=== PATIENT | female | born 1960 | race Caucasian/White ===

== ENCOUNTER 2017-01-05 10:30 | Inpatient (IN) | payer OTHER ==
[~2017-01-05] VITALS: Ht 172.7 cm; Wt 116.1 kg
[~2017-01-05 10:30] MED LIST: AMLO10TA2 PO; BREO ELLIPTA 21 EACH IH; CHOL10003 PO; CRAN200C2 PO; ESTR1TAB15 PO; GLUC1TAB71 PO; GREE250C PO; LANS15CA78 PO; MEDR2.5T28 PO; MELO15TA23 PO; MONT10TA9 PO; MULT-246 PO; OLME1TAB25 PO; OMEG1CAP38 PO; PROAIR HFA8.5 GM INH; UBID100C26 PO; VENL150C PO
[2017-01-12] VITALS (7 sets, daily range): BP systolic 96–131; BP diastolic 65–86
[2017-01-12] MEDS ORDERED: BACITRACIN 50,000 UNIT in IV NORMAL SALINE 1000ML BAG 1,000 ML IRR ONE (06:00)
--- NOTE | 2017-01-12 06:58 | HP ---
ADMIT DATE: 01/12/2017 PREOPERATIVE HISTORY AND PHYSICAL Charlie Hernandez dictating for Dr. Valeriano Davis. DATE OF SURGERY: 01/12/2017 HISTORY OF PRESENT ILLNESS: The patient is a pleasant 56-year-old who is having difficulty with severe lower back pain along with pain, which radiates into her right leg. She also notices numbness in the right leg. The low back pain is constant and increase with walking or standing. Her right leg pain and numbness occur with walking and standing. She did undergo surgery in 2006 on the lumbar spine. In 2011, I operated on her for a left lumbar radiculopathy. This is related to a large synovial cyst. She did well from that operation; however, in the last year, has had increasing back pain along with problems in her right leg. She notes a numbness, which tends to radiate down her lateral thigh and anterior lateral leg to the dorsum of her right foot. She does not notice weakness in her legs. She rates her pain as 8/10. She sits and rests in a recliner frequently. 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 She takes [place], Tylenol and ibuprofen. She has been through physical therapy. She has not had epidural steroid injections since her 2012 surgery. There is no significant problem on the left side. PAST MEDICAL HISTORY: Arthritis, asthma and headaches. SURGICAL HISTORY: Laminectomy in 2006, bronchitis in 1997, cyst removed from ankle in 2011, lumbar decompression and synovial cyst removed in 2011. FAMILY HISTORY: Diabetes, heart problems and hypertension. SOCIAL HISTORY: Employed as an area admin. . Denies substance abuse. Nonsmoker. Drinks alcohol 1-2 times per month. Drinks soda daily. ALLERGIES: JOSE L INHIBITORS. CURRENT MEDICATIONS: ProAir HFA, venlafaxine, montelukast sodium, Breo Ellipta, olmesartan medoxomil, amlodipine besylate, meloxicam, estradiol, medroxyprogesterone, ____, cyclobenzaprine, [place], Nexium, Tylenol and ibuprofen. REVIEW OF SYSTEMS: A 12-point review of systems was obtained and is noncontributory, except for that mentioned above. NEUROSURGERY EXAMINATION: GENERAL APPEARANCE: Alert and pleasant, in no acute distress. HEAD: Normocephalic and atraumatic. SKIN: Warm and dry. MUSCULOSKELETAL: Lumbar paraspinal muscle bulk is normal. Restricted range of motion of the lumbar spine. [id number]-[id number] tenderness of lower lumbar spine with palpation. Normal range of motion of lower extremities bilaterally. EXTREMITIES: No clubbing, cyanosis or edema. NEUROLOGIC: Alert and oriented x 3. Normal recent and remote memory. Strength 5/5 in bilateral lower extremities. Sensory was intact to light touch in bilateral lower extremities, except for decrease in the right anterior lateral leg to light touch. Reflexes were trace and symmetric in the lower extremities bilaterally. Positive straight leg raising on the right. Negative straight leg raising on the left. Markedly antalgic gait favoring her right leg. IMAGING: Reviewed. I reviewed the lumbar MRI scan. There are postoperative changes at L5-S1 with left hemilaminectomy. There is a severe lateral recess stenosis and foraminal narrowing on the right at that level. She has spondylolisthesis at L5-S1 of 8 mm on the MRI scan. This increases to a grade 2 spondylolisthesis as seen on her plain lumbar spine films. There is a partial lumbarization of S1, and this level is labeled L4-L5 on the lumbar spine film report. I am labeling this level L5-S1 as it is labeled on the report. ASSESSMENT: 1. Spondylolisthesis, lumbosacral region. 2. Radiculopathy, lumbosacral region. PLAN: The patient has a spondylolisthesis with motion at L5-S1 along with neural foraminal narrowing and lateral recess narrowing on the right. There are postoperative changes on the left at that level. She has severe right lumbar radiculopathy, which follows the L5 nerve root pattern, suggesting compression of the L5 root and the narrowed neural foramen on the right. I have recommended lumbar microdecompression on the right side at the level of the lateral recess as well as the neural foraminal combined with posterior instrumentation at L5-S1 with an anterior diskectomy and fusion at this level. I discussed this with her in detail. She would like to go ahead. We will make the arrangements. VALERIANO DAVIS MD DR: JORGE/mariaelena JOB#: [id number] / [id number]
[2017-01-12] MEDS ORDERED: IV RINGERS,LACTATED 1000ML 1,000 ML IV SCH (07:00)
[2017-01-12] MEDS ORDERED: fentaNYL PF VIAL 100 MCG/2 ML VIAL IV PRN ×3 (07:00→18:45)
[2017-01-12] MEDS ORDERED: MORPHINE SULFATE 2 MG/ML DISP.SYRIN. IV PRN (07:00)
[2017-01-12] MEDS ORDERED: LIDOCAINE 1% PF 2 ML VIAL. ID PRN (07:00)
[2017-01-12] MEDS ORDERED: ONDANSETRON PF 4 MG/2 ML VIAL. IV PRN ×2 (07:00→18:45)
[2017-01-12] MEDS ORDERED: PROCHLORPERAZINE 10 MG/2 ML VIAL. IV PRN (07:00)
[2017-01-12] MEDS ORDERED: GELATIN SPONGE SIZE 100. ONE (07:26)
[2017-01-12] MEDS ORDERED: KETOROLAC 60 MG/2 ML INJ FOR OR. ONE (07:26)
[2017-01-12] MEDS ORDERED: BUPIVACAINE MPF 0.5% 30 ML VIAL. ONE (07:27)
[2017-01-12] MEDS ORDERED: THROMBIN TOPICAL 20,000 UNIT SPRAY.SYRN KIT TP ONE (07:27)
[2017-01-12] MEDS ORDERED: BUPIVAC MPF-EPI 0.5%-1:200000 30 ML VIAL. ONE (07:28)
[2017-01-12] MEDS ORDERED: SCOPOLAMINE 1.5MG PATCH. TD ONE (08:30)
[2017-01-12] MEDS ORDERED: MIDAZOLAM HCL/PF 2 MG/2 ML VIAL. ONE ×2 (10:10→15:55)
[2017-01-12] MEDS ORDERED: REMIFENTANIL 2 MG VIAL. IV ONE ×2 (10:10→16:16)
[2017-01-12] MEDS ORDERED: GLYCOPYRROLATE 1 MG/5 ML VIAL. ONE (10:10)
[2017-01-12] MEDS ORDERED: ROCURONIUM 50 MG/5 ML VIAL. ONE (10:10)
[2017-01-12] MEDS ORDERED: DESFLURANE > 120 MINUTES IH ONE (10:11)
[2017-01-12] MEDS ORDERED: ONDANSETRON PF 4 MG/2 ML VIAL. ONE (10:11)
[2017-01-12] MEDS ORDERED: PROPOFOL 50 ML IV ONE ×5 (10:11→18:08)
[2017-01-12] MEDS ORDERED: LIDOCAINE 2% PF Vial for OR 5 ML VIAL. ONE (10:11)
[2017-01-12] MEDS ORDERED: PROPOFOL 20 ML IV ONE ×2 (10:11→15:41)
[2017-01-12] MEDS ORDERED: DEXAMETHASONE SOD PHOS 20 MG/5 ML VIAL. ONE (10:11)
[2017-01-12] MEDS ORDERED: PHENYLEPHRINE 10 MG/ML VIAL. ONE (10:14)
--- NOTE | 2017-01-12 11:25 | RAD ---
CT lumbar spine without contrast 01/12/2017 Clinical indication: Lumbar radiculopathy. Comparison: None. Technique: Multiple CT images of the lumbar spine were obtained without contrast. PQRS Compliance Statement: One or more of the following individualized dose reduction techniques were utilized for this examination: 1. Automated exposure control 2. Adjustment of the mA and/or kV according to patient size 3. Use of iterative reconstruction technique Finds: Lumbar spine: There are 5 nonrib-bearing lumbar type vertebral bodies with the first considered L1 for the purposes of this dictation. There is 5 mm grade 1 anterolisthesis L5 on S1. Vertebral body heights are maintained. There is moderate disc degeneration at T12-L1 and L5-S1 with endplate sclerosis and disc space narrowing, marginal osteophyte formation and vacuum disc phenomenon. There is mild disc space narrowing at L1-L2. The paraspinal soft tissues are unremarkable. Segmental analysis: At T12-L1, disc degeneration with concentric disc bulging and posterior disc ossify complex results in moderate bilateral neural foraminal narrowing but no significant spinal canal narrowing. At L1-L2, concentric disc bulging resulting in moderate bilateral neural foraminal narrowing with no significant spinal canal narrowing. At L2-L3, shallow concentric disc bulging with no significant spinal canal or neural foraminal narrowing. At L3-L4, no significant spinal canal or neuroforaminal narrowing. At L4-L5, concentric disc bulging and moderate bilateral facet hypertrophy and ligamentum flavum thickening results in moderate spinal canal and mild bilateral neuroforaminal narrowing. At L5-S1, grade 1 anterolisthesis with unroofing of the dorsal disc and bilateral facet hypertrophy results in mild spinal canal and severe right and moderate to severe left neural foraminal stenosis. Impression: 1. Grade 1 anterolisthesis of L5 on S1. 2. Multilevel spinal canal narrowing, greatest to a moderate degree, at L4-L5. 3. Degenerative multilevel neural foraminal narrowing, greatest to severe degree, on the right at L5-S1. 4. Additional areas of moderate neural foraminal narrowing, as detailed above.
[2017-01-12] MEDS ORDERED: 0.9 % SODIUM CHLORIDE 50 ML VIAL. IJ ONE (16:16)
[2017-01-12] MEDS ORDERED: fentaNYL PF VIAL 100 MCG/2 ML VIAL ONE ×3 (18:17→19:15)
[2017-01-12] MEDS ORDERED: NON FORMULARY ITEM (Albuterol Sulfate (Proair Hfa Inhaler) 2 PUFF) INH PRN (18:45)
[2017-01-12] MEDS ORDERED: MAGNESIUM HYDROXIDE 2,400 MG/30 ML ORAL.SUSP. PO PRN (18:45)
[2017-01-12] MEDS ORDERED: MAG HYDROX/ALUMINUM HYD/SIMETH 30 ML ORAL.SUSP PO PRN (18:45)
[2017-01-12] MEDS ORDERED: oxyCODONE/APAP 5/325 1 TAB TABLET PO PRN (18:45)
[2017-01-12] MEDS ORDERED: diphenhydrAMINE HCL 25 MG CAPSULE PO PRN (18:45)
[2017-01-12] MEDS ORDERED: ACETAMINOPHEN 325 MG TABLET. PO PRN (18:45)
[2017-01-12] MEDS ORDERED: diphenhydrAMINE 50 MG/ML VIAL IV PRN (18:45)
[2017-01-12] MEDS ORDERED: 0.9 % SODIUM CHLORIDE 10 ML DISP.SYRIN. IV PRN (18:45)
[2017-01-12] MEDS ORDERED: CALCIUM CARBONATE 500 MG TAB.CHEW PO PRN (18:45)
[2017-01-12] MEDS: fentaNYL PF VIAL 100 MCG/2 ML VIAL IV PRN ×4 (19:03→19:31)
[2017-01-12] MEDS ORDERED: HYDROmorphone 2 MG/ML VIAL ONE (19:32)
[2017-01-12] MEDS: HYDROmorphone 2 MG/ML VIAL IV PRN ×4 (19:35→20:06)
[2017-01-12] MEDS ORDERED: KETOROLAC 30 MG/ML INJ. ONE (19:47)
[2017-01-12] MEDS: POTASSIUM CL 20MEQ D5-0.45NACL 1,000 ML IV SCH (20:00)
[2017-01-12] MEDS: oxyCODONE/APAP 5/325 1 TAB TABLET PO PRN (20:13)
[2017-01-12] MEDS ORDERED: ALBUTEROL SULFATE 2.5 MG/3 ML NEBU. NEB PRN (20:45)
[2017-01-12] MEDS ORDERED: ceFAZolin SODIUM 1 GM in IV DEXTROSE 5% 50 ML IV SCH (22:00)
[2017-01-12] MEDS: DOCUSATE SODIUM 100 MG CAPSULE. PO SCH (22:32)
[2017-01-12] MEDS: METHOCARBAMOL 750 MG TABLET PO SCH (22:32)
[2017-01-12] MEDS: ceFAZolin SODIUM IV Push 1 GM VIAL. IVP SCH (22:59)
[2017-01-13] MEDS: oxyCODONE/APAP 5/325 1 TAB TABLET PO PRN ×3 (01:12→11:04)
[2017-01-13] MEDS: ceFAZolin SODIUM IV Push 1 GM VIAL. IVP SCH (06:36)
[2017-01-13 06:43] VITALS: BP 115/71
[2017-01-13] MEDS ORDERED: PANTOPRAZOLE 40 MG TABLET.DR. PO SCH (07:30)
[2017-01-13] MEDS ORDERED: BUDESONIDE 0.5 MG/2 ML NEBU. NEB SCH (08:00)
[2017-01-13] MEDS: ALBUTEROL SULFATE 2.5 MG/3 ML NEBU. NEB SCH ×3 (08:07→15:03)
[2017-01-13] MEDS: DOCUSATE SODIUM 100 MG CAPSULE. PO SCH (08:30)
[2017-01-13] MEDS: METHOCARBAMOL 750 MG TABLET PO SCH ×2 (08:30→15:58)
[2017-01-13] MEDS ORDERED: NON FORMULARY ITEM (Fluticasone/Vilanterol (Breo Ellipta 200-25 Mcg INH) 1 PUFF) IH SCH (09:00)
[2017-01-13] MEDS ORDERED: LOSARTAN POTASSIUM 50 MG TABLET. PO SCH (09:00)
[2017-01-13] MEDS ORDERED: CHOLECALCIFEROL (VITAMIN D3) 1,000 UNIT TABLET PO SCH (09:00)
[2017-01-13] MEDS ORDERED: amLODIPine BESYLATE 10 MG TABLET PO SCH (09:00)
[2017-01-13] MEDS ORDERED: ESTRADIOL 1 MG TABLET. PO SCH (09:00)
[2017-01-13] MEDS ORDERED: VENLAFAXINE XR 37.5 MG CAP.ER.24H. PO SCH (09:00)
[2017-01-13] MEDS ORDERED: MONTELUKAST SODIUM 10 MG TABLET. PO SCH (09:00)
[2017-01-13] MEDS: POTASSIUM CL 20MEQ D5-0.45NACL 1,000 ML IV SCH (09:20)
[2017-01-13 11:15] VITALS: BP 133/74
--- NOTE | 2017-01-13 11:18 | DISCH ---
DISCHARGE INSTRUCTIONS Condition on Discharge Condition on Discharge: Stable Activity After Discharge Activity Instructions for Disc: Activity as tolerated, Avoid exertion Bathing Instructions: Shower-keep dressing dry Lifting Instructions after Dis: No heavy lifting, No pulling or pushing, Do not lift >10 pounds Driving Instructions after Dis: No driving for 2 weeks Diet after Discharge Additional Diet Restrictions: resume home diet Wound Incision Care Wound/Incision Care: Ice to area for comfort Other wound/incision instructi: may remove dressing in 48 hrs if dry then may shower- no soaking Contacting the after DC Call your doctor for: Concerns you may have Follow-Up Follow up with: Dr. Kyle's nurse in 2 weeks [phone] CLARIEC MILTON OVERCOIL STEPPER Jan 13, 2017 11:18
[2017-01-13] MEDS ORDERED: OXYC1TAB7 PO (11:23)
[2017-01-13] MEDS ORDERED: METH750T2 PO (11:23)
[2017-01-13] MEDS ORDERED: DOCU-109 PO (11:23)
[2017-01-13 15:00] VITALS: BP 131/75
--- NOTE | 2017-01-16 15:11 | PATHOLOGY ---
PATHOLOGY REPORT * * * * * * * * FINAL DIAGNOSIS: Segments of fibrocartilaginous, fibroadipose and skeletal muscle tissue and bone, lumbar decompression: - Degenerative changes of fibrocartilaginous tissue. COMMENT: There is no evidence of an acute inflammatory process or malignancy. (JPM:pit; 01/16/2017) REPORT ELECTRONICALLY SIGNED BY: Adonis Jorgensen M.D. DATE/TIME: 01/16/2017 15:10 * * * * * * * * GROSS PATHOLOGY: Received in formalin labeled "Priscilla Delacruz, lumbar decompression," are multiple segments of nichols and white rubbery and gritty tissue measuring 2.5 x 3.2 x 0.9 cm in aggregate dimensions containing small fragments of bone. The tissue is submitted representatively in cassette A1. (TSD; 01/13/2017) INITIAL CPT CODE(S): A; 03915 Professional services [place] [address] Technical services performed by [facility] at [address] [place] [address]. SPECIMEN(S) RECEIVED: A.Lumbar decompression CLINICAL HISTORY: Lumbar spondylolisthesis, radiculopathy PATIENT: PRISCILLA DELACRUZ /AGE: 12 1960 (Age: 56) PATIENT #: [id number] ALT CASE #: SPECIMEN COLLECTION DATE: 01/12/2017 SPECIMEN RECEIVED DATE: 01/13/2017 [facility] - [address] [place] [address] - PHONE: [phone] * * * END OF REPORT * * *
--- NOTE | 2017-01-18 17:09 | OP ---
DATE OF SURGERY: 01/12/2017 PREOPERATIVE DIAGNOSES: 1. Grade 2 spondylolisthesis, L5-S1. 2. Lateral recess stenosis with severe right lumbar radiculopathy. POSTOPERATIVE DIAGNOSES: 1. Grade 2 spondylolisthesis, L5-S1. 2. Lateral recess stenosis with severe right lumbar radiculopathy. OPERATION PERFORMED: 1. Posterior instrumentation, L5-S1 with reduction of spondylolisthesis. 2. Hemilaminotomy, right L5-S1 with decompression of dura and nerve root. 3. Posterolateral fusion, L5-S1 with allograft and autograft bone. 4. The operation was done with fluoroscopy, microscopic dissection, BrainLAB guidance, EMG monitoring, triggered EMG monitoring. SURGEON: Valeriano Davis M.D. BUSINESS FUNCTIONAL ANALYST: ROSIE Abreu assisted with the surgery. She assisted with the exposure, decompression, placement of the pedicle screws as well as the closure. OPERATIVE INDICATIONS: The patient is a pleasant 56-year-old woman who developed severe intractable back and right leg pain, which failed conservative measures. She had in the past undergone left-sided lumbar microsurgery with removal of synovial cyst and done well from that surgery. On imaging studies, however, she had a significant spondylolisthesis of grade 2 along with evidence of motion at that level combined with severe lateral recess stenosis on the right side. I recommended lumbar microsurgical decompression on the right L5-S1 and reduction of her spondylolisthesis. I had considered performing an anterior interbody fusion at the time of surgery; however, because of the patient's body habitus and the degree of anterolisthesis of L5 on S1 I felt that that was an imprudent decision and that the patient would be better served with posterior instrumentation and posterolateral fusion alone combined with the microdecompression. I discussed the surgery with her in detail. I discussed the risks and the technique and she understood and wished to go ahead. DESCRIPTION OF PROCEDURE: Following general endotracheal anesthesia, the patient was positioned prone on the Stanley table. Her lumbar region was prepped and draped in standard fashion. RIVERA hose and AV impulse boots were applied for deep venous thrombosis prophylaxis. The microscope was draped. Fluoroscopy was draped and brought to the field. Monitoring was established. Ancef 2 grams was given less than 1 hour prior to initiation of the surgery. I placed iliac pins in the left iliac crest and the BrainLAB system was initialized. I then made a midline incision, reflected the paraspinal muscles laterally and placed deep retractors following adequate exposure. I cannulated the pedicles as followed. Using the [employer] system, I drilled in the posterior aspect of the pedicle, I passed the black ball with stimulated EMG monitoring followed by testing with the ball tip probe, followed by tap, followed by screw placement. This was done at L5 and S1 on the left side, and I also at this time placed a needle into the left iliac crest and aspirated 20 mL of bone marrow. I then went to the right side and cannulated the openings in the pedicles, but did not place the pedicle screws yet. I then brought in the microscope and using the high speed air drill I burred down a very generous hemilaminotomy. I performed a partial foraminotomy decompressing the S1 root, and then I drilled superiorly removing very thickened ligamentum flavum and exposing the takeoff of the L5 root. Following this wide decompression then I placed the pedicle screws in L5 and S1. I did use reduction screws in L5 bilaterally and then reduced her spondylolisthesis to a grade 1. At this time, then I excoriated the transverse processes and the lateral facets. I mixed the allograft bone that I had taken from the decompression with autograft bone and packed this into the lateral gutters. I torqued the construct, obtained films, which I felt were satisfactory, irrigated copiously and then I closed the wound in layers with absorbable suture after removing the retractors and obtaining excellent hemostasis in the muscle. The subcutaneous tissue was closed in layers. The skin was closed with a 4-0 subcuticular stitch and Steri-Strips. I felt the operation went very well. The patient was taken to recovery room in excellent condition with almost immediate improvement in the pain she described in her legs. I was very pleased with the surgery. VALERIANO DAVIS MD DR: JORGE/mariaelena JOB#: [id number] / [id number] ASAD
== END 2017-01-13 16:15 | disposition home or self-care (01) | DRG 460 ==
LOC: OPSVCIP 01-12 07:36 → 4 SOUTHEST 01-12 20:25
PROVIDERS: ADMIT Neurological Surgery; ATTEND Neurological Surgery
PROC: 07DR3ZZ Extraction of Iliac Bone Marrow, Percutaneous Approach (ICD-10-PCS; 2017-01-12)
PROC: 4A11X4G Monitoring of Peripheral Nervous Electrical Activity, Intraoperative, External Approach (ICD-10-PCS; 2017-01-12)
PROC: 0SG3071 Fusion of Lumbosacral Joint with Autologous Tissue Substitute, Posterior Approach, Posterior Column, Open Approach (ICD-10-PCS; principal; 2017-01-12 10:30)
DX: M54.17 Radiculopathy, lumbosacral region (principal); J45.909 Unspecified asthma, uncomplicated; M43.17 Spondylolisthesis, lumbosacral region; M19.90 Unspecified osteoarthritis, unspecified site; M71.30 Other bursal cyst, unspecified site; Z82.49 Family history of ischemic heart disease and other diseases of the circulatory system; Z83.3 Family history of diabetes mellitus
CPT/HCPCS: 36415; 72131; 76000; 86850; 86900; 86901; 88304; 94250; 94640; 94760; C1713; J0690; J1100; J1170; J1885; J2250; J2405; J2704; J3010; J3490; J7030; J7120; J7613; J7626; 97110; 97116; J2001

== ENCOUNTER → 2020-11-20 | Outpatient (CLI) | payer OTHER ==
[~2020-11-20] MED LIST changes: +ALBU2.5V8 INH; +AMLO-187 PO; -AMLO10TA2 PO; +ATOR40TA59 PO; +DOCU-109 PO; +ESTR-113 PO; -ESTR1TAB15 PO; +LANS15CA73 PO; -LANS15CA78 PO; +META-21 PO; +METH-562 PO; +MONT10TA49 PO; -MONT10TA9 PO; +OXYC1TAB7 PO; +PANT40TA77 PO; -PROAIR HFA8.5 GM INH
[2020-11-20 13:22] LABS: BASO # 0.1 x10^3/uL (0.0-0.2); BASO % 1 % (0-3); EOS # 0.3 x10^3/uL (0.0-0.7); EOS % 6 % (0-3); HEMATOCRIT 35.6 % (36.0-47.0); HEMOGLOBIN 12.1 g/dL (12.0-15.5); LYMPH # 1.7 x10^3/uL (1.0-4.8); LYMPH % 35 % (24-48); MEAN CORPUSCULAR HEMOGLOBIN 32 pg (25-35); MEAN CORPUSCULAR HGB CONC 34 g/dL (31-37); MEAN CORPUSCULAR VOLUME 94 fL (79-100); MONO # 0.5 x10^3/uL (0.0-1.1); MONO % 11 % (0-9); NEUT # 2.2 x10^3/uL (1.8-7.7); NEUT % 46 % (31-73); PLATELET COUNT 358 x10^3/uL (140-400); RED BLOOD COUNT 3.79 x10^6/uL (3.50-5.40); WHITE BLOOD COUNT 4.8 x10^3/uL (4.0-11.0)
--- NOTE | 2020-11-20 13:27 | EKG ---
[facility] [address] [place] [address] Test Date: 2020-11-20 Test Time: 13:28:19 Pat Name: NAKUL DURBIN Department: Room: Gender: F Metal Furniture Assembler: : 1960 Requested By: MALINI DAVIS Order Number: [id number] Reading MD: Wilfredo Soto MD Measurements Intervals [place] Rate: 77 P: 180 IL: 194 QRS: -156 QRSD: 92 T: -175 QT: 388 QTc: 441 Interpretive Statements SR PROBABLE LIMB LEAD MISPLACEMENT Electronically Signed On 11-24-2020 14:11:10 CDT by Wilfredo Soto MD
[2020-11-20 13:43] LABS: ALBUMIN 3.4 g/dL (3.4-5.0); CALCIUM 8.7 mg/dL (8.5-10.1); CREATININE 0.9 mg/dL (0.6-1.0); GFR 64.3; POTASSIUM 3.8 mmol/L (3.5-5.1); TOTAL BILIRUBIN 0.2 mg/dL (0.2-1.0); TOTAL PROTEIN 6.7 g/dL (6.4-8.2)
== END ==
LOC: SURGPAT 12:30
PROVIDERS: ATTEND Neurological Surgery
DX: Z01.818 Encounter for other preprocedural examination (principal); M47.26 Other spondylosis with radiculopathy, lumbar region; M43.16 Spondylolisthesis, lumbar region; Z98.1 Arthrodesis status
CPT/HCPCS: 36415; 80053; 85025; 85610; 85730; 87641; 93005

== ENCOUNTER 2020-12-03 08:24 | Inpatient (IN) | payer OTHER ==
[2020-12-03] VITALS (8 sets, daily range): BP systolic 95–122; BP diastolic 52–83
[~2020-12-03] VITALS: Ht 172.7 cm; Wt 109.0 kg
[~2020-12-03 08:24] MED LIST changes: +BUPIVACAINE-EPI 0.5%-1:200000 MPF 30 ML VIAL. ONE; +GELATIN SPONGE SIZE 100. ONE; +HYDROmorphone 2 MG/ML VIAL IVP PRN; +IV RINGERS,LACTATED 1000ML 1,000 ML IV SCH; +KETOROLAC 60 MG/2 ML VIAL. ONE; +SCOPOLAMINE 1.5MG PATCH. TD ONE; +THROMBIN TOPICAL 20,000 UNIT SPRAY.SYRN KIT TP ONE; +ceFAZolin SODIUM 1 GM in IV NORMAL SALINE 1000ML BAG 1,000 ML IRR ONE; +fentaNYL PF VIAL 100 MCG/2 ML VIAL IVP PRN
[2020-12-03] MEDS ORDERED: SCOPOLAMINE 1.5MG PATCH. TD ONE (09:15)
[2020-12-03] MEDS ORDERED: DEXAMETHASONE SOD PHOS 4 MG/ML VIAL ONE (10:07)
[2020-12-03] MEDS ORDERED: PROPOFOL 10 MG/ML (20ML) VIAL. IV ONE (10:07)
[2020-12-03] MEDS ORDERED: ONDANSETRON PF 4 MG/2 ML VIAL. ONE (10:07)
[2020-12-03] MEDS ORDERED: LIDOCAINE 2% PF 5 ML VIAL. ONE (10:07)
[2020-12-03] MEDS ORDERED: PROPOFOL 50 ML IV ONE ×3 (10:07→16:10)
[2020-12-03] MEDS ORDERED: fentaNYL PF VIAL 100 MCG/2 ML VIAL ONE ×2 (10:08→17:54)
[2020-12-03] MEDS ORDERED: REMIFENTANIL 2 MG VIAL. IV ONE (10:08)
[2020-12-03] MEDS ORDERED: ROCURONIUM 50 MG/5 ML VIAL. ONE (10:08)
[2020-12-03] MEDS ORDERED: ePHEDrine PF IN SALINE 50 MG/10 ML SYRINGE. IV ONE (12:40)
[2020-12-03] MEDS ORDERED: PHENYLEPHRINE 10 MG/ML VIAL. ONE ×2 (12:46)
[2020-12-03] MEDS ORDERED: 0.9 % SODIUM CHLORIDE 20 ML VIAL. IJ ONE (14:36)
[2020-12-03] MEDS ORDERED: REMIFENTANIL 1 MG VIAL. IV ONE ×2 (14:36→15:57)
[2020-12-03] MEDS ORDERED: ceFAZolin SODIUM IV Push 1 GM VIAL. IVP ONE ×2 (15:34)
[2020-12-03] MEDS ORDERED: PHENYLEPHRINE in 0.9% NACL PF 1 MG/10 ML SYRINGE. IV ONE (15:44)
[2020-12-03] MEDS ORDERED: SEVOFLURANE > 120 MINUTES. IH ONE (16:44)
[2020-12-03] MEDS ORDERED: HYDROmorphone 2 MG/ML VIAL ONE (16:50)
[2020-12-03] MEDS ORDERED: diphenhydrAMINE HCL 25 MG CAPSULE PO PRN (17:30)
[2020-12-03] MEDS ORDERED: ACETAMINOPHEN 325 MG TABLET. PO PRN (17:30)
[2020-12-03] MEDS ORDERED: ONDANSETRON PF 4 MG/2 ML VIAL. IVP PRN (17:30)
[2020-12-03] MEDS ORDERED: oxyCODONE/APAP 5/325 1 TAB TABLET PO PRN (17:30)
[2020-12-03] MEDS ORDERED: MAGNESIUM HYDROXIDE 2,400 MG/30 ML ORAL.SUSP. PO PRN (17:30)
[2020-12-03] MEDS ORDERED: ALBUTEROL SULFATE 2.5 MG/3 ML NEBU. INH PRN (17:30)
[2020-12-03] MEDS ORDERED: NALOXONE 0.4 MG/ML VIAL. IV PRN (17:30)
[2020-12-03] MEDS ORDERED: 0.9 % SODIUM CHLORIDE 10 ML DISP.SYRIN. IV PRN (17:30)
[2020-12-03] MEDS ORDERED: CALCIUM CARBONATE 500 MG TAB.CHEW PO PRN (17:30)
[2020-12-03] MEDS ORDERED: MAG HYDROX/ALUMINUM HYD/SIMETH 30 ML ORAL.SUSP PO PRN (17:30)
[2020-12-03] MEDS ORDERED: CYCLOBENZAPRINE 10 MG TABLET. PO PRN (17:45)
[2020-12-03] MEDS ORDERED: PROCHLORPERAZINE 10 MG/2 ML VIAL. ONE (17:53)
[2020-12-03] MEDS ORDERED: MORPHINE SULFATE 2 MG/ML INJ. ONE (17:54)
[2020-12-03] MEDS: PROCHLORPERAZINE 10 MG/2 ML VIAL. IVP PRN ×2 (17:59→18:11)
[2020-12-03] MEDS: fentaNYL PF VIAL 100 MCG/2 ML VIAL IVP PRN ×4 (18:00→22:07)
[2020-12-03] MEDS: MORPHINE SULFATE 2 MG/ML INJ. IVP PRN ×2 (18:01→18:12)
--- NOTE | 2020-12-03 18:24 | NUR ---
Arrived to unit by bed from PACU. Awakens easily. No c/o at this time. Moves all extremities easily. IVF's intact and infusing. O2 at 2l per n/c. RIVERA's and SCD's on bilaterally. Oriented to room and controls side rails up x's 2. Spouse at bedside. Cont. monitor.
[2020-12-03] MEDS: POTASSIUM CL 20MEQ D5-0.45NACL 1,000 ML IV SCH (19:31)
[2020-12-03] MEDS: DOCUSATE SODIUM 100 MG CAPSULE. PO SCH (20:18)
[2020-12-03] MEDS ORDERED: ceFAZolin SODIUM IV Push 1 GM VIAL. IVP SCH (22:00)
[2020-12-04] MEDS: oxyCODONE/APAP 5/325 1 TAB TABLET PO PRN ×3 (00:32→11:09)
[2020-12-04 03:00] VITALS: BP 103/61
[2020-12-04 06:19] VITALS: BP 116/66
--- NOTE | 2020-12-04 06:30 | NUR ---
Stand by assist to toilet, gait steady. + void. Dressing has scant scattered drainage present. Ancef #3 initiated. Percocet 2 tabs given for c/o back pain 05/06.
[2020-12-04] MEDS: POTASSIUM CL 20MEQ D5-0.45NACL 1,000 ML IV SCH (06:50)
[2020-12-04] MEDS ORDERED: PANTOPRAZOLE 40 MG TABLET.DR. PO SCH (07:30)
[2020-12-04] MEDS: DOCUSATE SODIUM 100 MG CAPSULE. PO SCH (08:12)
[2020-12-04] MEDS ORDERED: CHOLECALCIFEROL (VITAMIN D3) 1,000 UNIT TABLET PO SCH (09:00)
[2020-12-04] MEDS ORDERED: LOSARTAN POTASSIUM 50 MG TABLET. PO SCH (09:00)
[2020-12-04] MEDS ORDERED: hydroCHLOROthiazide 25 MG TABLET PO SCH (09:00)
[2020-12-04] MEDS ORDERED: VENLAFAXINE 50 MG TABLET. PO SCH (09:00)
[2020-12-04] MEDS ORDERED: ATORVASTATIN CALCIUM 40 MG TABLET. PO SCH (09:00)
[2020-12-04] MEDS ORDERED: MONTELUKAST SODIUM 10 MG TABLET. PO SCH (09:00)
[2020-12-04] MEDS ORDERED: ESTRADIOL 1 MG TABLET. PO SCH (09:00)
[2020-12-04] MEDS ORDERED: CYCLOBENZAPRINE 10 MG TABLET. PO PRN (09:45)
--- NOTE | 2020-12-04 10:45 | PREOP HP ---
DATE OF SERVICE: 12/03/2020 PREOPERATIVE HISTORY AND PHYSICAL HISTORY OF PRESENT ILLNESS: The patient is a pleasant 60-year-old who is having difficulty with back pain and pain that radiates to her right buttock, hip, and right inguinal region. When she is active, the pain can radiate into the anterior lateral thigh and posterior thigh on the right. She said the problem has been slowly worsening since 01/2020. In the past, she has had 3 lumbar surgeries. The first surgery was in 2006, the second was in 2011 and the third was in 2016. At the time of her last surgery, she underwent an instrumented fusion and decompression at L5-S1. She did well following that until 01/2020 and that problem has been slowly worsening since then. She says that if she walks any distances, the pain can become 9/10. Standing and walking increased her pain. Sitting helps her. She takes hydrocodone, which does give her some temporary relief. She had physical therapy in 2018. She has had epidural steroid injections in the past. When she was seen in 01/2020, she felt the pain was not severe enough at that time to consider surgery. At this time; however, she would like to proceed because her pain is severe. CURRENT MEDICATIONS: Venlafaxine, amlodipine, estradiol, Nexium, hydrocodone, metoprolol, meloxicam. ALLERGIES: JOSE L INHIBITORS. PAST MEDICAL HISTORY: Arthritis, asthma, headaches, hypertension. PAST SURGICAL HISTORY: Lumbar surgery as mentioned above, cyst removed from her ankle in 2011. FAMILY HISTORY: Diabetes, heart disease, hypertension, Alzheimer disease. SOCIAL HISTORY: Employed in administrative services. . Does not smoke. Drinks alcohol 1-2 times a year. REVIEW OF SYSTEMS: A 12-point review of systems was performed and is noncontributory except that mentioned above. PHYSICAL EXAMINATION: GENERAL: Alert, pleasant, in no acute distress. HEENT: Head is normocephalic, atraumatic. SKIN: Warm and dry. Well-healed lumbar incision. MUSCULOSKELETAL: Lumbar paraspinal muscle bulk is normal, restricted range of motion of the lumbar spine, marked tenderness of the lower lumbar spine with palpation, normal range of motion of the lower extremities bilaterally, internal and external rotation of the hip are negative. EXTREMITIES: No clubbing, cyanosis or edema. NEUROLOGIC: Alert and oriented x 3. Strength is 5/5 in the bilateral lower extremities. There is a slight decrease in light touch involving her right foot. Her reflexes were trace and symmetric. Straight leg raising was weakly positive on the right, negative on the left. Normal gait. IMAGING: I reviewed her lumbar MRI scan. On that study, she has an instrumented fusion at L5-S1. At L4-5, which is the level above her instrumented fusion, she has developed moderately severe degenerative arthritis. There is severe lateral recess narrowing bilaterally with evidence of compression of the L5 nerve root. On the right side, there is only mild foraminal narrowing. ASSESSMENT AND PLAN: Still with her progressive severe right leg pain, she will require bilateral laminotomies at L4-5 with wide decompression of the L5 nerve roots. To gain access to this area, the hardware will need to be removed at L5-S1. Because she has a 3 mm anterolisthesis of L4 on L5, she will in addition to the decompression need extension at the instrumented fusion to include L4-5. I spoke with her about all this in detail including the risk of surgery, the technique, the rationale and the expected postoperative course. She understands and would like to proceed. AMANDA/CHRISTIE DR: Vicente TID: [id number]
[2020-12-04 11:09] VITALS: BP 130/52
[2020-12-04] MEDS ORDERED: DOCU-109 PO (11:32)
[2020-12-04] MEDS ORDERED: METH-562 PO (11:33)
--- NOTE | 2020-12-04 11:34 | DISCH ---
DISCHARGE INSTRUCTIONS Condition on Discharge Condition on Discharge: Stable Activity After Discharge Activity Instructions for Disc: Activity as tolerated, Avoid exertion, Prog ressive ambulation Bathing Instructions: Shower-keep dressing dry, No Tub Bath until see Lifting Instructions after Dis: No heavy lifting, No pulling or pushing, Do not lift >10 pounds Exercise Instruction after Dis: Exercise per therapy, Progress as tolerated Driving Instructions after Dis: Do not drive Weight Bearing Status after Di: Full weight bearing Diet after Discharge Diet after Discharge: Regular Additional Diet Restrictions: resume home diet Diet Texture: Regular Liquid Texture: Thin Liquid Wound Incision Care Wound/Incision Care: Ice to area for comfort, Change dressing, May get incision wet, Reinforce dressing PRN Other wound/incision instructi: May shower 48 hours after surgery. Remove dressing. Replace if desired Wound Care Equipment: Dressings, Sutures/theodore Checks after Discharge Checks after discharge: Check blood press - daily Contacting the after DC Call your doctor for: Concerns you may have Follow-Up Follow Up With: Dr Davis's nurse in two weeks [phone] Treatment/Equipment after DC Adaptive Equipment Issued: Brace/splint MALINI DAVIS MD Dec 04, 2020 11:34
--- NOTE | 2020-12-04 11:49 | PDOC ---
PROGRESS NOTES Date of Service DATE: 12/04/20 TIME: 11:48 Subjective Subjective POD #1 S/P lumbar laminectomy and fusion sitting up in chair still has some right leg pain, controlled with medication wants to go home Objective Objective Vital Signs Date Time Temp Pulse Resp B/P (MAP) Pulse Ox O2 Delivery O2 Flow Rate FiO2 12/04/20 11:09 96 Room Air 12/04/20 11:09 98.7 82 20 130/52 (78) 98.7 12/03/20 20:18 3.0 Intake and Output 12/04/20 07:00 Intake Total 2855 ml Output Total 900 ml Balance 1955 ml Intake Oral 400 ml IV Total 1950 ml Blood Product IV Normal Saline Flush 505 ml Output Urine Total 850 ml Estimated Blood Loss 50 ml Physical Exam General: Alert, Oriented X3, Cooperative, No acute distress MUSCULOSKELETAL: Other (WOLFE) Neuro: Normal speech Skin: Other (dressing dry and intact, theodore intact) Plan Plan of Care dc home f/u 2 weeks Comment Review of Relevant I have reviewed the following items bao (where applicable) has been applied. Medications Current Medications Cefazolin Sodium 1 gm/Sodium Chloride 1,000 ml @ 1,000 mls/hr 1X ONCE IRR Last administered on 12/03/20at 12:53; Start 12/03/20 at 06:00; Stop 12/03/20 at 06:59; Status DC Fentanyl Citrate (Fentanyl 2ml Vial) 25 mcg PRN Q5MIN PRN IVP MILD PAIN 1-3; Start 12/03/20 at 06:00; Stop 12/04/20 at 05:59; Status DC Fentanyl Citrate (Fentanyl 2ml Vial) 50 mcg PRN Q5MIN PRN IVP MODERATE PAIN 4-6 Last administered on 12/03/20at 18:11; Start 12/03/20 at 06:00; Stop 12/04/20 at 05:59; Status DC Morphine Sulfate (Morphine Sulfate) 1 mg PRN Q10MIN PRN IVP SEVERE PAIN 7-10 Last administered on 12/03/20at 18:12; Start 12/03/20 at 06:00; Stop 12/04/20 at 05:59; Status DC Ringer's Solution 1,000 ml @ 30 mls/hr Q24H IV Last administered on 12/03/20at 09:13; Start 12/03/20 at 06:00; Stop 12/03/20 at 17:59; Status DC Hydromorphone HCl (Dilaudid) 0.5 mg PRN Q10MIN PRN IVP SEVERE PAIN 7-10, 2nd CHOICE; Start 12/03/20 at 06:00; Stop 12/04/20 at 05:59; Status DC Prochlorperazine Edisylate (Compazine) 5 mg PACU PRN PRN IVP NAUSEA, MRX1 Last administered on 12/03/20at 18:11; Start 12/03/20 at 06:00; Stop 12/04/20 at 05:59; Status DC Cefazolin Sodium/ Dextrose 50 ml @ 100 mls/hr 1X PREOP PRN IV PRIOR TO PROCEDURE Last administered on 12/03/20at 12:10; Start 12/03/20 at 06:00; Stop 12/03/20 at 18:00; Status DC Gelatin (Gelfoam Size 100) 1 each STK-MED ONCE .ROUTE Last administered on 12/03/20at 12:53; Start 12/03/20 at 07:25; Stop 12/03/20 at 07:25; Status DC Bupivacaine HCl/ Epinephrine Bitart (Sensorcain-Epi 0.5%-1:[id number] Mpf) 30 ml STK-MED ONCE .ROUTE Last administered on 12/03/20at 12:53; Start 12/03/20 at 07:25; Stop 12/03/20 at 07:25; Status DC Ketorolac Tromethamine (Toradol Im) 60 mg STK-MED ONCE .ROUTE Last administered on 12/03/20at 12:53; Start 12/03/20 at 07:25; Stop 12/03/20 at 07:25; Status DC Thrombin 20,000 unit STK-MED ONCE TP Last administered on 12/03/20at 12:53; Start 12/03/20 at 07:25; Stop 12/03/20 at 07:25; Status DC Scopolamine (Transderm-Scop) 1 patch STK-MED ONCE TD ; Start 12/03/20 at 08:00; Stop 12/03/20 at 08:00; Status DC Scopolamine (Transderm-Scop) 1 patch 1X ONCE TD Last administered on 12/03/20at 09:14; Start 12/03/20 at 09:15; Stop 12/03/20 at 09:25; Status DC Propofol (Diprivan) 200 mg STK-MED ONCE IV ; Start 12/03/20 at 10:07; Stop 12/03/20 at 10:07; Status DC Lidocaine HCl (Lidocaine Pf 2% Vial) 5 ml STK-MED ONCE .ROUTE ; Start 12/03/20 at 10:07; Stop 12/03/20 at 10:08; Status DC Ondansetron HCl (Zofran) 4 mg STK-MED ONCE .ROUTE ; Start 12/03/20 at 10:07; Stop 12/03/20 at 10:08; Status DC Propofol 50 ml @ As Directed STK-MED ONCE IV ; Start 12/03/20 at 10:07; Stop 12/03/20 at 10:08; Status DC Dexamethasone Sodium Phosphate (Decadron) 4 mg STK-MED ONCE .ROUTE ; Start 12/03/20 at 10:07; Stop 12/03/20 at 10:08; Status DC Fentanyl Citrate (Fentanyl 2ml Vial) 100 mcg STK-MED ONCE .ROUTE ; Start 12/03/20 at 10:08; Stop 12/03/20 at 10:08; Status DC Rocuronium [place] (Zemuron) 50 mg STK-MED ONCE .ROUTE ; Start 12/03/20 at 10:08; Stop 12/03/20 at 10:08; Status DC Remifentanil HCl (Ultiva) 2 mg STK-MED ONCE IV ; Start 12/03/20 at 10:08; Stop 12/03/20 at 10:09; Status DC Ephedrine Sulfate (ePHEDrine PF IN SALINE SYRINGE) 50 mg STK-MED ONCE IV ; Start 12/03/20 at 12:40; Stop 12/03/20 at 12:41; Status DC Phenylephrine HCl (Papito-Synephrine Inj) 10 mg STK-MED ONCE .ROUTE ; Start 12/03/20 at 12:46; Stop 12/03/20 at 12:47; Status DC Phenylephrine HCl (Papito-Synephrine Inj) 10 mg STK-MED ONCE .ROUTE ; Start 12/03/20 at 12:46; Stop 12/03/20 at 12:47; Status DC Remifentanil HCl (Ultiva) 1 mg STK-MED ONCE IV ; Start 12/03/20 at 14:36; Stop 12/03/20 at 14:36; Status DC Sodium Chloride (SODIUM CHLORIDE 20ml) 20 ml STK-MED ONCE IJ ; Start 12/03/20 at 14:36; Stop 12/03/20 at 14:36; Status DC Cefazolin Sodium (Ancef) 1 gm STK-MED ONCE IVP ; Start 12/03/20 at 15:34; Stop 12/03/20 at 15:35; Status DC Cefazolin Sodium (Ancef) 1 gm STK-MED ONCE IVP ; Start 12/03/20 at 15:34; Stop 12/03/20 at 15:35; Status DC Phenylephrine HCl (PHENYLEPHRINE in 0.9% NACL PF) 1 mg STK-MED ONCE IV ; Start 12/03/20 at 15:44; Stop 12/03/20 at 15:44; Status DC Remifentanil HCl (Ultiva) 1 mg STK-MED ONCE IV ; Start 12/03/20 at 15:57; Stop 12/03/20 at 15:58; Status DC Propofol 50 ml @ As Directed STK-MED ONCE IV ; Start 12/03/20 at 16:10; Stop 12/03/20 at 16:10; Status DC Propofol 50 ml @ As Directed STK-MED ONCE IV ; Start 12/03/20 at 16:10; Stop 12/03/20 at 16:10; Status DC Sevoflurane (Ultane) 90 ml STK-MED ONCE IH ; Start 12/03/20 at 16:44; Stop 12/03/20 at 16:44; Status DC Hydromorphone HCl (Dilaudid) 2 mg STK-MED ONCE .ROUTE ; Start 12/03/20 at 16:50; Stop 12/03/20 at 16:51; Status DC Albuterol Sulfate (Ventolin Neb Soln) 2.5 mg PRN Q6HRS PRN INH SHORTNESS OF BREATH; Start 12/03/20 at 17:30 Amlodipine Besylate (Norvasc) 10 mg DAILY PO Last administered on 12/04/20at 08:12; Start 12/04/20 at 09:00 Atorvastatin Calcium (Lipitor) 40 mg DAILY PO Last administered on 10/8/21at 08:13; Start 12/04/20 at 09:00 Vitamin D (Vitamin D3) 1,000 unit DAILY PO Last administered on 12/04/20 08:13; Start 12/04/20 at 09:00 Estradiol (Estrace) 2 mg DAILY PO Last administered on 12/04/20at 08:13; Start 12/04/20 at 09:00 Medroxyprogesterone Acetate (Provera) 2.5 mg DAILY PO Last administered on 12/04/20 08:14; Start 12/04/20 at 09:00 Montelukast Sodium (Singulair) 10 mg DAILY PO Last administered on 12/04/20 08:12; Start 12/04/20 at 09:00 Pantoprazole Sodium (Protonix) 40 mg DAILYAC PO Last administered on 12/04/20 06:13; Start 12/04/20 at 07:30 Losartan Potassium (Cozaar) 100 mg DAILY PO Last administered on 12/04/20 08:13; Start 12/04/20 at 09:00 Venlafaxine HCl (Effexor) 50 mg TID PO Last administered on 12/04/20 08:12; Start 12/04/20 at 09:00 Fentanyl Citrate (Fentanyl 2ml Vial) 50 mcg PRN Q2HR PRN IVP PAIN Last administered on 12/03/20at 22:07; Start 12/03/20 at 17:30 Acetaminophen (Tylenol) 650 mg PRN Q6HRS PRN PO MILD PAIN / TEMP > 100.3'F; Start 12/03/20 at 17:30 Al Hydroxide/Mg Hydroxide (Mylanta Plus Xs) 30 ml PRN Q3HRS PRN PO HEARTBURN / GAS Last administered on 12/04/20at 03:04; Start 12/03/20 at 17:30 Calcium Carbonate/ Glycine (Tums) 500 mg PRN Q3HRS PRN PO INDIGESTION; Start 12/03/20 at 17:30 Diphenhydramine HCl (Benadryl) 25 mg PRN Q6HRS PRN PO ITCHING; Start 12/03/20 at 17:30 Naloxone HCl (Narcan) 0.1 mg PRN Q2MIN PRN IV SEE COMMENTS; Start 12/03/20 at 17:30 Sodium Chloride (Normal Saline Flush) 3 ml QSHIFT PRN IV AFTER MEDS AND BLOOD DRAWS; Start 12/03/20 at 17:30 Potassium Chloride/Dextrose/ Sod Cl 1,000 ml @ 75 mls/hr [id number] IV Last administered on 12/03/20at 19:31; Start 12/03/20 at 17:30 Oxycodone/ Acetaminophen (Percocet 5/325) 1 tab PRN Q4HRS PRN PO MILD PAIN, 1ST CHOICE; Start 12/03/20 at 17:30 Oxycodone/ Acetaminophen (Percocet 5/325) 2 tab PRN Q4HRS PRN PO MODERATE PAIN, SEVERE PAIN Last administered on 12/04/20at 11:09; Start 12/03/20 at 17:30 Docusate Sodium (Colace) 100 mg BID PO Last administered on 12/04/20at 08:12; Start 12/03/20 at 21:00 Magnesium Hydroxide (Milk Of Magnesia) 2,400 mg PRN Q12HR PRN PO CONSTIPATION; Start 12/03/20 at 17:30 Ondansetron HCl (Zofran) 4 mg PRN Q6HRS PRN IVP NAUESA, 1ST CHOICE; Start 12/03/20 at 17:30 Cefazolin Sodium (Ancef) 1 gm Q8HRS IVP ; Start 12/03/20 at 22:00; Stop 12/04/20 at 14:01; Status UNV Cyclobenzaprine HCl (Flexeril) 10 mg PRN DAILY PRN PO MUSCLE SPASMS Last administered on 12/04/20at 08:12; Start 12/03/20 at 17:45; Stop 12/04/20 at 09:45; Status DC Hydrochlorothiazide (Hydrodiuril) 25 mg DAILY PO Last administered on 12/04/20at 08:13; Start 12/04/20 at 09:00 Prochlorperazine Edisylate (Compazine) 10 mg STK-MED ONCE .ROUTE ; Start 12/03/20 at 17:53; Stop 12/03/20 at 17:53; Status DC Morphine Sulfate (Morphine Sulfate) 2 mg STK-MED ONCE .ROUTE ; Start 12/03/20 at 17:54; Stop 12/03/20 at 17:54; Status DC Fentanyl Citrate (Fentanyl 2ml Vial) 100 mcg STK-MED ONCE .ROUTE ; Start 12/03/20 at 17:54; Stop 12/03/20 at 17:54; Status DC Cefazolin Sodium/ Dextrose 50 ml @ 100 mls/hr Q6H IV Last administered on 12/04/20at 06:14; Start 12/03/20 at 19:00; Stop 12/04/20 at 07:29; Status DC Cyclobenzaprine HCl (Flexeril) 10 mg PRN Q8HRS PRN PO MUSCLE SPASMS; Start 12/04/20 at 09:45 Active Scripts Active Oxycodone-Acetaminophen 5-325 (Oxycodone Hcl/Acetaminophen) 1 Each Tablet 1 Tab PO PRN Q4HRS PRN Reported Skelaxin (Metaxalone) 800 Mg Tablet 800 Mg PO DAILY PRN Atorvastatin Calcium 40 Mg Tablet 1 Tab PO DAILY Meloxicam 15 Mg Tablet 1 Tab PO DAILY PRN 30 Days Pantoprazole Sodium (Pantoprazole Sodium) 40 Mg Tablet.dr 40 Mg PO DAILYAC Medroxyprogesterone Acetate 2.5 Mg Tablet 1 Tab PO DAILY Proair Hfa Inhaler (Albuterol Sulfate) 8.5 Gm Hfa.aer.ad 2 Puff INH PRN Q6HRS PRN Estradiol 1 Mg Tablet 2 Tab PO DAILY Montelukast Sodium Tablet (Montelukast Sodium) 10 Mg Tablet 1 Tab PO DAILY Effexor Xr (Venlafaxine Hcl) 150 Mg Cap.er.24h 1 Cap PO DAILY Amlodipine Besylate 10 Mg Tablet 10 Mg PO DAILY Benicar Hct 40-25 Mg Tablet (Olmesartan/Hydrochlorothiazide) 1 Each Tablet 1 Tab PO DAILY Vitamin D3 (Cholecalciferol (Vitamin D3)) 1,000 Unit Tablet 1 Tab PO DAILY Vitals/I & O Vital Sign - Last 24 Hours 12/03/20 12/03/20 12/03/20 12/03/20 17:29 17:29 17:44 17:59 Temp 97.2 97.2 Pulse 102 92 95 Resp 20 20 20 B/P (MAP) 123/67 111/56 100/53 Pulse Ox 100 100 97 O2 Delivery Simple Mask Mask Simple Mask Room Air O2 Flow Rate 10 10 10 12/03/20 12/03/20 12/03/20 12/03/20 18:00 18:01 18:11 18:12 Resp 20 20 20 20 Pulse Ox 99 99 99 99 O2 Delivery Aerosol Mask Room Air Room Air Room Air O2 Flow Rate 10.0 12/03/20 12/03/20 12/03/20 12/03/20 18:14 18:17 18:30 18:45 Temp 98.0 98.0 Pulse 82 84 80 Resp 20 16 18 B/P (MAP) 96/51 103/56 (72) 95/52 (66) Pulse Ox 92 100 93 O2 Delivery Nasal Cannula Nasal Cannula Nasal Cannula Nasal Cannula O2 Flow Rate 2 2 2.0 2.0 12/03/20 12/03/20 12/03/20 12/03/20 19:00 19:15 19:49 20:00 Pulse 74 79 77 B/P (MAP) 121/80 (94) 118/72 (87) 121/75 (90) Pulse Ox 96 97 92 O2 Delivery Room Air Room Air Room Air Nasal Cannula O2 Flow Rate 2.0 12/03/20 12/03/20 12/03/20 12/03/20 20:18 20:45 20:50 21:45 Pulse 75 74 Resp 20 18 B/P (MAP) 122/83 (96) 97/52 (67) Pulse Ox 97 92 94 O2 Delivery Nasal Cannula Room Air Nasal Cannula Room Air O2 Flow Rate 3.0 12/03/20 12/03/20 12/03/20 12/04/20 22:07 22:40 23:00 00:32 Temp 97.5 97.5 Pulse 82 Resp 20 20 16 20 B/P (MAP) 112/66 (81) Pulse Ox 93 O2 Delivery Room Air Room Air Room Air 12/04/20 12/04/20 12/04/20 12/04/20 01:05 03:00 06:19 06:20 Temp 98.5 98.4 98.5 98.4 Pulse 83 79 Resp 20 18 18 20 B/P (MAP) 103/61 (75) 116/66 (83) Pulse Ox 92 96 O2 Delivery Room Air Room Air Room Air Room Air 12/04/20 12/04/20 12/04/20 12/04/20 06:50 07:45 08:12 08:13 Pulse 79 79 B/P (MAP) 116/66 116/66 Pulse Ox 96 O2 Delivery Room Air Room Air 12/04/20 12/04/20 11:09 11:09 Temp 98.7 98.7 Pulse 82 Resp 20 B/P (MAP) 130/52 (78) Pulse Ox 95 96 O2 Delivery Room Air Room Air Intake and Output 0 12/03/20 12/03/20 12/04/20 15:00 23:00 07:00 Intake Total 2250 ml 605 ml Output Total 900 ml Balance 1350 ml 605 ml Justifications for Admission Other Justification MALINI DAVIS MD Dec 04, 2020 11:49
--- NOTE | 2020-12-04 12:21 | OP ---
DATE OF SURGERY: 12/03/2020 PREOPERATIVE DIAGNOSES: 1. Lumbar spinal stenosis L4-5 with severe right lumbar radiculopathy. 2. Previous instrumented fusion, L5-S1. POSTOPERATIVE DIAGNOSES: 1. Lumbar spinal stenosis L4-5 with severe right lumbar radiculopathy. 2. Previous instrumented fusion, L5-S1. OPERATION PERFORMED: Removal of hardware, L5-S1; lumbar right direct laminectomy L4-5; placement of hardware L4 through S1; posterolateral fusion, L4-5. The operation was done with EMG monitoring, SSEP monitoring, fluoroscopy, microscopic dissection, Brainlab guidance. SURGEON: Valeriano Kyle M.D. SALES FLOOR TEAM MEMBER: ROSIE Abreu, assisted with the surgery. She assisted with the exposure, the removal of the hardware, the lumbar right direct laminectomy and decompression at L4-5 as well as placement of hardware L4 to sacrum and posterolateral fusion. SPECIMEN: Decompression. OPERATIVE INDICATIONS: The patient is a very pleasant 60-year-old who developed intractable back and right leg pain, which failed conservative measures. She had the above-mentioned findings on imaging studies and I recommended a decompression with instrumentation and fusion at L4-5. Unfortunately, the hardware at L5-S1 was blocking access to that region and therefore needed to be removed in order to approach this. She understood the surgery and the risks, the technique and she wished to go ahead. DESCRIPTION OF PROCEDURE: Following general endotracheal anesthesia, the patient was positioned prone on the Stanley table. Her lumbar region prepped and draped in a standard fashion. RIVERA hose and AV impulse boots were applied for DVT prophylaxis. Microscope was draped, fluoroscopy was draped and brought into the field. Monitoring was established. Ancef 2 grams given less than 1 hour prior to initiation of the surgery. Using fluoroscopic guidance, the Brainlab Star was attached to the L3 spinous process. The Brainlab system was initialized. I then dissected down through skin and subcutaneous tissue and exposed the hardware at L5 and S1 and removed it bilaterally. I then went to L4-5 and dissected the scar muscle fascia off of the spinous process with lamina and carried this out laterally, placing self-retaining retractor, brought in the microscope at this point and using the high speed air drill, I burred down a generous hemilaminotomy. I then carried it across to the midline and undercut the midline. I performed a partial foraminotomy and fully decompressed the entire region. This part was somewhat difficult because the ligamentum flavum was densely adherent to the underlying dura that took some time to peel away the thickened ligament and fully exposed the overlying dura, which moved back nicely as well as the exiting root. I did perform a partial foraminotomy. At this point, then I replaced the hardware L4-5-1, first on the left side along with excoriating the transverse processes working up to 4 laterally and excoriating on that side and packed allograft bone into this location. I did aspirate 20 mL of bone marrow, which I used with the bone. I used Nuvasive Propel as well as allograft bone chips and sponge and fully filled this region. I then went to the right side, in a similar fashion excoriated the transverse processes, worked laterally and inferiorly superiorly and prepared the bed for fusion. I packed allograft bone into the right lateral gutter. The [place] Dark Star screws were replaced and the system was torqued sequentially bilaterally. I irrigated copiously with antibiotic solution. Hemostasis was excellent. I then closed the wounds in layers with absorbable suture and the skin was closed with skin theodore. I felt the surgery went very well. ZORAN DR: Darryl TID: [id number] [facility] HEALTH NETWORKShahla
--- NOTE | 2020-12-04 12:47 | NUR ---
Patient left with her around 1228. Dressing to lower back changed prior to dismissal without complications noted. [place] CDI with a new dressing placed and extra dressings given to the patient for dressing changes at home if desired. LSO brace arrived from [facility] and fitted to the patient. Robaxin and percocet addressed by the doctor and sent to her pharmacy. No concerns noted at discharge. Discharge education gone over completely by this nurse, therapy, and the doctor prior to dismissal.
--- NOTE | 2020-12-07 18:06 | PATHOLOGY ---
[facility] Accession Number: [id number] . 01 Material submitted: . vertebral column - LUMBAR DECOMPRESSION . 01 Clinical history: . LUMBAR STENOSIS, RADICULOPATHY, ARTHORDESIS, BACK PAIN ,SPONDYLOLISTHESIS L5 S1, LUMBAR GROVER, LAMINECTOMY L4-5, PLACEMENT OF HARDWARE L4-5, L5-S1, POSTERIOR LATERAL FUSION L4-5 . 02 Diagnosis: Segments of fibrocartilaginous, fibroadipose, and skeletal muscle tissue and bone, lumbar decompression: - Degenerative changes of fibrocartilaginous tissue. (JPM:[facility]; 12/07/2020) [facility] 12/07/2020 1557 Local . 02 Comment: There is no evidence of an acute inflammatory process or malignancy. (JPM:[facility]; 12/07/2020) . 02 Electronically signed: . Adonis Jorgensen MD, Pathologist NPI- [id number] . 01 Gross description: . Received in formalin labeled "Jayme, Priscilla, lumbar decompression" are multiple irregular, nichols brown fragments of soft tissue measuring in aggregate 5.4 x 2.8 x 0.9 cm. [employer] Operator sections of the specimen are submitted in cassette A1.([facility]; 12/05/2020) GZA/GZA 12/05/2020 1717 Local . 02 Pathologist provided ICD-10: M51.36 . 02 CPT . 953154 Specimen Comment: A courtesy copy of this report has been sent to [phone], [phone] Specimen Comment: [id number] Specimen Comment: Report sent to / DR CENTENO Performed at: [address], [place], [place] [id number] MD Wei Jaeger MD Phone: [phone] Performed at: [id number] [place], [place] [id number] MD Adonis Jorgensen MD Phone: [phone]
== END 2020-12-04 12:30 | disposition home or self-care (01) | DRG 460 ==
LOC: OPSVCIP 08:24 → EDSTATUS 12:00 → 4 SOUTHEST 18:24
PROVIDERS: ADMIT Neurological Surgery; ATTEND Neurological Surgery
PROC: 0SP30JZ Removal of Synthetic Substitute from Lumbosacral Joint, Open Approach (ICD-10-PCS; 2020-12-03)
PROC: 01NB0ZZ Release Lumbar Nerve, Open Approach (ICD-10-PCS; 2020-12-03)
PROC: 4A11X4G Monitoring of Peripheral Nervous Electrical Activity, Intraoperative, External Approach (ICD-10-PCS; 2020-12-03)
PROC: 0RGA071 Fusion of Thoracolumbar Vertebral Joint with Autologous Tissue Substitute, Posterior Approach, Posterior Column, Open Approach (ICD-10-PCS; 2020-12-03)
PROC: 0SG0071 Fusion of Lumbar Vertebral Joint with Autologous Tissue Substitute, Posterior Approach, Posterior Column, Open Approach (ICD-10-PCS; principal; 2020-12-03 12:00)
DX: M48.061 Spinal stenosis, lumbar region without neurogenic claudication (principal); M43.16 Spondylolisthesis, lumbar region; I10 Essential (primary) hypertension; J45.909 Unspecified asthma, uncomplicated; M54.16 Radiculopathy, lumbar region; Z82.0 Family history of epilepsy and other diseases of the nervous system; Z82.49 Family history of ischemic heart disease and other diseases of the circulatory system; Z83.3 Family history of diabetes mellitus; M19.90 Unspecified osteoarthritis, unspecified site
CPT/HCPCS: 36415; 76000; 86850; 86900; 86901; J0690; J0780; J1100; J1170; J1885; J2270; J2370; J2405; J2704; J3010; J3480; J3490; J7030; J7120; 97116-GP; 97530-GP; G0378